=== PATIENT | male | born 1965 | race Caucasian/White ===

== ENCOUNTER 2023-03-14 14:09 | Outpatient (CLI) | payer BC ==
[2023-03-14 15:29] LABS: #Eosinphils 0.2 10x3/uL (0.0-0.5); #Monocytes 0.9 10x3/uL (0.0-1.1); #Neutrophils 6.3 10x3/uL (1.5-8.4); %Basophils 0.4 % (0.0-2.0); %Eosinophils 1.8 % (0.0-6.0); %Lymphocytes 21.7 % (18.0-47.0); %Monocytes 9.5 % (0.0-10.0); %Neutrophils 66.3 % (40.0-75.0); Hematocrit 48.3 % (38.8-50.0); Hemoglobin 16.8 g/dL (13.5-17.5); Mean Corpuscular HGB CONC 34.8 g/dL (32.0-36.0); Mean Corpuscular Hemoglobin 31.4 pg (27.0-33.0); Mean Corpuscular Volume 90.3 fl (81.2-95.1); Mean Platelet Volume 10.7 fl (7.4-10.4); Platelet Count 151 10x3/uL (150-450); RBC Distribution Width 12.7 % (11.5-14.5); Red Blood Cell (RBC) Count 5.35 10x6/uL (4.32-5.72); White Blood Cell (WBC) Count 9.5 10x3/uL (3.5-10.5)
[2023-03-14 16:00] LABS: Anion Gap 15 mmol/L (10-20); BUN (Urea Nitrogen) 25 mg/dL (8.4-25.7); Calc. Creatinine Clearance 0 mL/min (70-130); Calcium 9.6 mg/dL (7.8-10.44); Carbon Dioxide 25 mmol/L (22-29); Chloride 102 mmol/L (98-107); Estimated GFR 88; Glucose 97 mg/dL (70-105); Potassium 4.1 mmol/L (3.5-5.1); Sodium 138 mmol/L (136-145)
[2023-03-14 16:42] LABS: INR-International Normal Ratio 0.9; Prothrombin Time 10.2 sec (9.5-12.1)
== END 2023-03-14 14:10 | disposition home or self-care (01) ==
LOC: LABBT 14:09
PROVIDERS: ATTEND Orthopaedic Surgery
DX: Z01.818 Encounter for other preprocedural examination (principal); M16.12 Unilateral primary osteoarthritis, left hip
CPT/HCPCS: 80048; 85025; 85610; 87081; 93005; 93010

== ENCOUNTER 2023-03-19 07:41 | Observation (INO) | payer BC ==
[2023-03-14 14:52] VITALS: BMI 23.6
[2023-03-19] MEDS ORDERED: Tranexamic Acid 1,000 MG/10 ML VIAL ONE (08:08)
[2023-03-19] MEDS ORDERED: Sodium Chloride 0.9% 100 ML ONE ×2 (08:08→09:04)
[2023-03-19] MEDS ORDERED: Vancomycin 1 GM/200 ML (FROZEN) BAG ONE (08:09)
[2023-03-19] MEDS ORDERED: Midazolam HCl 2 mg/2 ml Vial ONE ×2 (08:14→08:36)
[2023-03-19] MEDS ORDERED: fentaNYL 50 mcg/mL 1 mL Vial ONE ×2 (08:14→11:22)
[2023-03-19] MEDS ORDERED: Bupivacaine PF 0.5% 30 ML VIAL ONE ×2 (08:14→09:04)
[2023-03-19] MEDS ORDERED: Bupivacaine HCl 0.5%/Epinephrine 1:200,000/PF 30 ml Vial ONE (08:30)
[2023-03-19] MEDS ORDERED: PROPOFOL 40 ML ONE (08:36)
[2023-03-19] MEDS ORDERED: CEFAZOLIN 2 GM VIAL ONE (09:03)
[2023-03-19] MEDS ORDERED: Zolpidem Tartrate 5 MG TAB PO PRN (09:19)
[2023-03-19] MEDS ORDERED: Promethazine HCl 25 MG/ML VIAL IM PRN ×2 (09:19→10:41)
[2023-03-19] MEDS ORDERED: Ondansetron PF 4 MG/2 ML Vial IVP PRN (09:19)
[2023-03-19] MEDS ORDERED: fentaNYL 50 mcg/mL 1 mL Vial SLOW IVP PRN ×2 (09:19)
[2023-03-19] MEDS ORDERED: Acetaminophen 325 MG TAB PO PRN (09:19)
[2023-03-19] MEDS ORDERED: diphenhydrAMINE 25 MG CAP PO PRN (09:19)
[2023-03-19] MEDS ORDERED: PROPOFOL 20 ML ONE (09:23)
[2023-03-19] MEDS ORDERED: Ketorolac Tromethamine 30 MG/ML VIAL IVP PRN (10:41)
[2023-03-19] MEDS ORDERED: HYDROmorphone 2 MG/ML VIAL SLOW IVP PRN (10:41)
[2023-03-19] MEDS ORDERED: Ondansetron HCl/PF 4 MG/2 ML Vial IVP PRN (10:41)
[2023-03-19] MEDS ORDERED: Ketorolac Tromethamine 30 MG (1 mL) VIAL ONE (11:21)
[2023-03-19] MEDS: Sodium Chloride 0.9% 1,000 ML IV SCH (15:54)
[2023-03-19] MEDS: Ketorolac Tromethamine 30 MG (1 mL) VIAL IVP SCH (15:55)
[2023-03-19] MEDS: CEFAZOLIN 2 GM in Sodium Chloride 0.9% 100 ML IVPB SCH (17:43)
[2023-03-19] MEDS: HYDROcodone/Acetaminophen 10/325 mg Tablet PO PRN (18:16)
[2023-03-19] MEDS: Aspirin 81 mg Enteric Coated Tablet PO SCH (21:32)
[2023-03-19] MEDS: clonazePAM 1 MG TAB PO SCH (21:32)
[2023-03-20] MEDS: HYDROcodone/Acetaminophen 10/325 mg Tablet PO PRN
[2023-03-20 04:56] LABS: Hemoglobin 14.4 g/dL (14.0-18.0); Mean Corpuscular HGB CONC 34.3 g/dL (32.0-36.0); Mean Corpuscular Hemoglobin 31.6 pg (27.0-31.0); Mean Corpuscular Volume 92.1 fl (78.0-98.0); Mean Platelet Volume 10.2 fL (7.4-10.4); Platelet Count 163 10x3/uL (130-400); RBC Distribution Width 13.1 % (11.5-14.5); Red Blood Cell (RBC) Count 4.56 mill/uL (4.70-6.10); White Blood Cell (WBC) Count 10.9 10x3/uL (4.8-10.8)
[2023-03-20] MEDS: Ferrous Gluconate 324 MG TAB PO SCH (08:41)
[2023-03-20] MEDS: Multivitamin W/ Minerals 1 TAB PO SCH (08:41)
[2023-03-20] MEDS: Senokot S 8.6-50 MG TAB PO SCH (08:41)
[2023-03-20 11:40] VITALS: BP 144/72; TEMP 98.1
== END 2023-03-20 11:45 | disposition home or self-care (01) ==
LOC: SDC 07:41 → SJJU 09:19 → SDC 14:00 → SJJU 15:47
PROVIDERS: ADMIT Orthopaedic Surgery; ATTEND Orthopaedic Surgery
PROC: 0SRB0JZ Replacement of Left Hip Joint with Synthetic Substitute, Open Approach (ICD-10-PCS; principal; 2023-03-20)
DX: M16.0 Bilateral primary osteoarthritis of hip (principal); G47.00 Insomnia, unspecified; F98.8 Other specified behavioral and emotional disorders with onset usually occurring in childhood and adolescence; E29.1 Testicular hypofunction; Z79.899 Other long term (current) drug therapy
CPT/HCPCS: 36415; 85027; 96365; 96375; 96376; C1776; G0378; J0665; J1885; J2250; J2704; J3010; J3370-JW; J3490